=== PATIENT | female | born 1955 | race Two or more races ===

== ENCOUNTER 2017-06-26 11:46 | Inpatient (IN) | payer MEDICAID ==
[~2017-06-26] VITALS: Ht 154.9 cm; Wt 75.0 kg
[~2017-06-26 11:46] MED LIST: ATOR40TA71 PO; CLOP75TA33 PO; DIGO250T4 PO; FLUO20CA22 PO; GABA-532 PO; HYDR-3686 PO; PANT-47 PO; QUET-1 PO; WARF5TAB7 PO
[2017-06-26 12:42] LABS: BASOPHILS # (AUTO) 0.1 X10'3 (0-0.2); BASOPHILS % (AUTO) 0.6 % (0-1); EOSINOPHILS # (AUTO) 0.2 X10'3 (0-0.9); EOSINOPHILS % (AUTO) 2.3 % (0-6); HEMATOCRIT 39.5 % (35.0-45.0); HEMOGLOBIN 13.2 g/dl (12.0-16.0); LYMPHOCYTES # (AUTO) 1.8 X10'3 (1.1-4.8); LYMPHOCYTES % (AUTO) 18.6 % (21-51); MEAN CORPUSCULAR HEMOGLOBIN 31.5 PG (27.0-31.0); MEAN CORPUSCULAR HGB CONC 33.5 % (33.0-36.5); MEAN CORPUSCULAR VOLUME 93.9 FL (78-98); MEAN PLATELET VOLUME 8.3 FL (7.4-10.4); MONOCYTES # (AUTO) 0.5 X10'3 (0-0.9); MONOCYTES % (AUTO) 5.1 % (2-12); NEUTROPHILS % (AUTO) 73.4 % (42-75); PLATELET COUNT 175 X10'3 (140-440); RED BLOOD COUNT 4.21 X10'6 (4.20-5.60); RED CELL DISTRIBUTION WIDTH 14.7 % (11.5-14.5); WHITE BLOOD COUNT 9.5 X10'3 (4.5-11.0)
[2017-06-26 12:52] LABS: INR 1.8 INR; PARTIAL THROMBOPLASTIN TIME 35 SECONDS (22-32); PROTHROMBIN TIME 18.1 SECONDS (9.0-12.0)
[2017-06-26 13:02] LABS: ALANINE AMINOTRANSFERASE 34 U/L (12-78); ALBUMIN 3.7 G/DL (3.4-5.0); ALBUMIN/GLOBULIN RATIO 0.9 (1.1-1.5); ALKALINE PHOSPHATASE 132 IU/L (46-116); ANION GAP 9 (8-16); ASPARTATE AMINO TRANSFERASE 26 U/L (10-37); BILIRUBIN,TOTAL 0.3 MG/DL (0.1-1.0); BLOOD UREA NITROGEN 15 MG/DL (7-18); BUN/CREATININE RATIO 15.6 (6.6-38.0); CHLORIDE 107 MMOL/L (99-107); CREATININE 0.96 MG/DL (0.40-0.90); GLUCOSE 107 MG/DL (70-104); POTASSIUM 4.1 MMOL/L (3.5-5.1); SODIUM 140 MMOL/L (135-145); TOTAL CARBON DIOXIDE 24.1 MMOL/L (24-32); TOTAL PROTEIN 7.9 G/DL (6.4-8.2); eGFR 59 ML/MIN
[2017-06-26] MEDS ORDERED: clopidogrel 75mg tablet PO STA (14:05)
[2017-06-26] MEDS ORDERED: nitroGLYCERIN 0.4mg SUBLingual tab SL PRN ×2 (14:05→15:40)
[2017-06-26] MEDS: nitroGLYCERIN 0.4mg SUBLingual tab SL PRN ×2 (14:16→14:25)
[2017-06-26] MEDS ORDERED: LORazepam 2 mg/ml vial IV ONE (14:40)
[2017-06-26] MEDS ORDERED: acetaminophen 325mg tablet PO PRN ×2 (15:00)
[2017-06-26] MEDS ORDERED: magnesium hydroxide 30ml (MOM) UD suspension PO PRN (15:00)
[2017-06-26] MEDS ORDERED: mag hydrox/Alum hydrox/simeth 30ml oral suspension PO PRN (15:00)
[2017-06-26] MEDS ORDERED: bisacodyl 10mg suppository rectal RC PRN (15:00)
[2017-06-26] MEDS ORDERED: acetaminophen 650mg rectal suppository RC PRN (15:00)
[2017-06-26] MEDS ORDERED: HYDROcodone/acetaminophen 10/325mg tab PO PRN (15:00)
[2017-06-26] MEDS ORDERED: HYDROcodone/acetaminophen 5mg/325mg tablet PO PRN (15:00)
[2017-06-26] MEDS ORDERED: metoclopramide 5 mg/ml inj IV PRN (15:00)
[2017-06-26] MEDS ORDERED: diphenhydrAMINE 50 mg/ml inj IV PRN (15:00)
[2017-06-26] MEDS ORDERED: ondansetron/PF 4mg/2ml inj IV PRN (15:00)
[2017-06-26] MEDS ORDERED: HYDROmorphone 1 mg/ml syringe IV PRN ×2 (15:00)
[2017-06-26] MEDS ORDERED: diphenhydrAMINE 25mg capsule PO PRN (15:00)
[2017-06-26] MEDS: normal saline 1000ml 1,000 ML IV SCH (15:23)
[2017-06-26] MEDS ORDERED: metoprolol tartrate 1mg/ml inj IV PRN (15:40)
[2017-06-26] MEDS ORDERED: aminophylline 250mg/10ml inj. IV PRN (15:40)
[2017-06-26] MEDS ORDERED: regadenoson 0.4mg/5ml syringe IV PRN (15:40)
[2017-06-26 15:46] LABS: D-DIMER 0.55 MG/L FEU (0-0.50)
[2017-06-26] MEDS: hydrOXYzine 25 MG tablet PO SCH ×2 (15:54→23:59)
[2017-06-26 16:00] LABS: LIPASE 132 U/L (73-393); PHOSPHORUS 3.6 MG/DL (2.3-4.5)
[2017-06-26] MEDS: nicotine 21mg patch - 24 hr TD SCH (16:01)
[2017-06-26] MEDS: methylPREDNISolone sod succ 125mg/2ml vial IV SCH (20:29)
[2017-06-26] MEDS: quetiapine 100mg tablet PO SCH (20:30)
[2017-06-26] MEDS: gabapentin 300mg capsule PO SCH (20:30)
[2017-06-26] MEDS: FLUoxetine 20mg capsule PO SCH (20:30)
[2017-06-26] MEDS: docusate sod 100mg capsule PO SCH (20:30)
[2017-06-26 21:00] VITALS: BP 123/71
[2017-06-26] MEDS ORDERED: warfarin 5mg tablet PO SCH (21:00)
[2017-06-26] MEDS ORDERED: temazepam 15mg capsule PO PRN (21:00)
[2017-06-27] VITALS: BP 123/91
[2017-06-27] MEDS: normal saline 1000ml 1,000 ML IV SCH ×2 (01:20→11:22)
[2017-06-27 06:00] LABS: BASOPHILS % (AUTO) 0.3 % (0-1); EOSINOPHILS # (AUTO) 0.1 X10'3 (0-0.9); EOSINOPHILS % (AUTO) 0.9 % (0-6); HEMATOCRIT 41.4 % (35.0-45.0); HEMOGLOBIN 13.8 g/dl (12.0-16.0); LYMPHOCYTES # (AUTO) 1.1 X10'3 (1.1-4.8); LYMPHOCYTES % (AUTO) 12.4 % (21-51); MEAN CORPUSCULAR HEMOGLOBIN 31.4 PG (27.0-31.0); MEAN CORPUSCULAR HGB CONC 33.4 % (33.0-36.5); MEAN CORPUSCULAR VOLUME 94.1 FL (78-98); MEAN PLATELET VOLUME 8.4 FL (7.4-10.4); MONOCYTES % (AUTO) 0.5 % (2-12); NEUTROPHILS # (AUTO) 7.4 X10'3 (1.8-7.7); NEUTROPHILS % (AUTO) 85.9 % (42-75); PLATELET COUNT 170 X10'3 (140-440); RED CELL DISTRIBUTION WIDTH 14.3 % (11.5-14.5); WHITE BLOOD COUNT 8.6 X10'3 (4.5-11.0)
[2017-06-27 06:10] LABS: INR 1.8 INR; PROTHROMBIN TIME 18.7 SECONDS (9.0-12.0)
[2017-06-27 06:42] LABS: ALANINE AMINOTRANSFERASE 32 U/L (12-78); ALBUMIN 3.4 G/DL (3.4-5.0); ALBUMIN/GLOBULIN RATIO 0.8 (1.1-1.5); ALKALINE PHOSPHATASE 130 IU/L (46-116); ANION GAP 10 (8-16); ASPARTATE AMINO TRANSFERASE 21 U/L (10-37); BILIRUBIN,TOTAL 0.3 MG/DL (0.1-1.0); BLOOD UREA NITROGEN 16 MG/DL (7-18); BUN/CREATININE RATIO 16.2 (6.6-38.0); CALCIUM 8.3 MG/DL (8.5-10.1); CHLORIDE 107 MMOL/L (99-107); CHOL/HDL RATIO 4.9 (0.00-4.99); CHOLESTEROL 186 MG/DL (0-200); CREATININE 0.99 MG/DL (0.40-0.90); GLUCOSE 164 MG/DL (70-104); HDL CHOLESTEROL 38 MG/DL (35-60); LDL CHOLESTEROL 121 MG/DL (50-100); POTASSIUM 4.1 MMOL/L (3.5-5.1); SODIUM 140 MMOL/L (135-145); TOTAL CARBON DIOXIDE 23.2 MMOL/L (24-32); TOTAL PROTEIN 7.6 G/DL (6.4-8.2); TRIGLYCERIDES 113 MG/DL (20-135); eGFR 57 ML/MIN
[2017-06-27] MEDS ORDERED: clopidogrel 75mg tablet PO SCH (08:00)
[2017-06-27] MEDS ORDERED: pantoprazole 40mg Tablet.DR PO SCH (08:00)
[2017-06-27] MEDS ORDERED: digoxin 250mcg (0.25mg) tablet PO SCH (08:00)
[2017-06-27] MEDS ORDERED: azithromycin 250mg tablet PO SCH (08:00)
[2017-06-27] MEDS ORDERED: atorvastatin 20mg tablet PO SCH (08:00)
[2017-06-27 08:12] VITALS: BP 159/88
[2017-06-27] MEDS: hydrOXYzine 25 MG tablet PO SCH (08:44)
[2017-06-27] MEDS: gabapentin 300mg capsule PO SCH ×2 (08:44→12:50)
[2017-06-27] MEDS: docusate sod 100mg capsule PO SCH (08:44)
[2017-06-27] MEDS: quetiapine 100mg tablet PO SCH (08:44)
[2017-06-27] MEDS: FLUoxetine 20mg capsule PO SCH (08:44)
[2017-06-27] MEDS: nicotine 21mg patch - 24 hr TD SCH (08:45)
[2017-06-27] MEDS: methylPREDNISolone sod succ 125mg/2ml vial IV SCH (08:45)
[2017-06-27 11:39] VITALS: BP 133/68
[2017-06-27] MEDS ORDERED: NICO-687 TD (14:09)
[2017-06-27] MEDS ORDERED: NICO-630 TOP (14:09)
[2017-06-27] MEDS ORDERED: AZI25OT PO (14:09)
[2017-06-27] MEDS ORDERED: NICO-731 TD (14:09)
[2017-06-27] MEDS ORDERED: PRED20TA PO (14:15)
== END 2017-06-27 16:21 | disposition home or self-care (01) | DRG 140 ==
LOC: ER 11:46 → ED HOLD 15:00 → MED 3N 18:43
PROVIDERS: ADMIT Family Medicine; ATTEND Family Medicine
DX: J44.0 Chronic obstructive pulmonary disease with (acute) lower respiratory infection (principal); J18.9 Pneumonia, unspecified organism; I11.0 Hypertensive heart disease with heart failure; I24.9 Acute ischemic heart disease, unspecified; I50.20 Unspecified systolic (congestive) heart failure; I25.10 Atherosclerotic heart disease of native coronary artery without angina pectoris; J44.1 Chronic obstructive pulmonary disease with (acute) exacerbation; E11.9 Type 2 diabetes mellitus without complications; F32.9 Major depressive disorder, single episode, unspecified; F41.9 Anxiety disorder, unspecified; G89.29 Other chronic pain; M54.9 Dorsalgia, unspecified; E78.00 Pure hypercholesterolemia, unspecified; F17.200 Nicotine dependence, unspecified, uncomplicated; I25.2 Old myocardial infarction; Z79.899 Other long term (current) drug therapy; Z86.73 Personal history of transient ischemic attack (TIA), and cerebral infarction without residual deficits; Z90.710 Acquired absence of both cervix and uterus; Z95.0 Presence of cardiac pacemaker; Z88.6 Allergy status to analgesic agent; Z88.5 Allergy status to narcotic agent; Z88.2 Allergy status to sulfonamides; Z88.8 Allergy status to other drugs, medicaments and biological substances
CPT/HCPCS: 36415; 71045; 80053; 80061; 80162; 82948; 83036; 83690; 83735; 83880; 84100; 84443; 84484; 85025; 85379; 85610; 85730; 87070; 93005; 94760; 96374; 99285; J2060; J2930; J7030; Q0177

== ENCOUNTER 2022-01-07 10:41 | Day surgery (SDC) | payer MEDICAID ==
[~2022-01-07] VITALS: Ht 154.9 cm; Wt 57.6 kg
[~2022-01-07 10:41] MED LIST changes: +AZI25OT PO; +FLUO-213 PO; -FLUO20CA22 PO; +NICO-687 TD; +NICO-731 TD; +WARF-55 PO; -WARF5TAB7 PO
[2022-01-07 11:00] VITALS: BP 117/65
[2022-01-07] MEDS ORDERED: vancomycin/NS 1 GM ADD-VANTAGE 250 ML X 1 DOSE IV ONE (11:25)
[2022-01-07] MEDS ORDERED: cefazolin/dext.iso 2gm/100ml 100 ML IV ONE (11:25)
[2022-01-07 11:32] LABS: BASOPHILS # (AUTO) 0.1 X10'3 (0-0.2); BASOPHILS % (AUTO) 0.9 % (0-1); EOSINOPHILS # (AUTO) 0.1 X10'3 (0-0.9); EOSINOPHILS % (AUTO) 2.2 % (0-6); HEMATOCRIT 39.3 % (35.0-45.0); HEMOGLOBIN 13.2 g/dl (12.0-16.0); LYMPHOCYTES # (AUTO) 1.8 X10'3 (1.1-4.8); LYMPHOCYTES % (AUTO) 31.5 % (21-51); MEAN CORPUSCULAR HGB CONC 33.6 g/dL (33.0-36.5); MEAN CORPUSCULAR VOLUME 92.5 FL (78-98); MEAN PLATELET VOLUME 9.7 FL (7.4-10.4); MONOCYTES # (AUTO) 0.3 X10'3 (0-0.9); MONOCYTES % (AUTO) 6.2 % (2-12); NEUTROPHILS # (AUTO) 3.3 X10'3 (1.8-7.7); NEUTROPHILS % (AUTO) 59.2 % (42-75); PLATELET COUNT 138 X10'3 (140-440); RED BLOOD COUNT 4.25 X10'6 (4.20-5.60); RED CELL DISTRIBUTION WIDTH 14.1 % (11.5-14.5); WHITE BLOOD COUNT 5.6 X10'3 (4.5-11.0)
[2022-01-07] MEDS ORDERED: AMIO200T61 PO (11:44)
[2022-01-07] MEDS ORDERED: DESV50TA20 PO (11:44)
[2022-01-07] MEDS ORDERED: MELO-102 PO (11:44)
[2022-01-07] MEDS ORDERED: TIOT4MIS3 INH (11:44)
[2022-01-07] MEDS ORDERED: METH-798 PO (11:44)
[2022-01-07] MEDS ORDERED: NITR0.4T48 SL (11:44)
[2022-01-07] MEDS ORDERED: ARIP10TA57 PO (11:44)
[2022-01-07] MEDS ORDERED: DILT-103 PO (11:44)
[2022-01-07] MEDS ORDERED: DULO30CA52 PO (11:44)
[2022-01-07] MEDS ORDERED: PREG150C PO (11:44)
[2022-01-07] MEDS ORDERED: LEVE500T PO (11:44)
[2022-01-07] MEDS ORDERED: METO25TA6 PO (11:44)
[2022-01-07] MEDS ORDERED: PRAV80TA3 PO (11:44)
[2022-01-07] MEDS ORDERED: ALPR1TAB7 PO (11:44)
[2022-01-07] MEDS ORDERED: CLOP75TA34 PO (11:44)
[2022-01-07 11:51] LABS: ALBUMIN 3.7 G/DL (3.4-5.0); ANION GAP 9 (8-16); BLOOD UREA NITROGEN 15 MG/DL (7-18); BUN/CREATININE RATIO 15.8 (6.6-38.0); CALCIUM 9.1 MG/DL (8.5-10.1); CHLORIDE 111 MMOL/L (99-107); CREATININE 0.95 MG/DL (0.40-0.90); GLUCOSE 84 MG/DL (70-104); POTASSIUM 3.9 MMOL/L (3.5-5.1); SODIUM 145 MMOL/L (135-145); eGFR 59 ML/MIN
[2022-01-07] MEDS ORDERED: LIDOCAINE 2% w/EPI 1:100:000 30mL injection MDV**cath lab 1 only ONE (14:21)
[2022-01-07] MEDS ORDERED: midazolam 1 mg/ML 2ml injection ONE ×2 (14:21→14:57)
[2022-01-07] MEDS ORDERED: fentaNYL/PF 50MCG/1 ML 2ML syringe ONE (14:21)
[2022-01-07] MEDS ORDERED: vancomycin 1,000mg inj ONE (14:21)
[2022-01-07] MEDS ORDERED: gelatin sponge, absorbable (Gelfoam 12-7MM) sponge TP ONE (15:18)
[2022-01-07 15:54] VITALS: BP 144/74
[2022-01-07 16:09] VITALS: BP 138/64
[2022-01-07] MEDS ORDERED: HYDROcodone/acetaminophen 10/325mg tab PO PRN (16:10)
[2022-01-07] MEDS ORDERED: normal saline 1000ml 1,000 ML IV SCH (16:10)
[2022-01-07] MEDS ORDERED: HYDROcodone/acetaminophen 5mg/325mg tablet PO PRN (16:10)
[2022-01-07 16:24] VITALS: BP 119/57
[2022-01-07 16:38] VITALS: BP 122/59
[2022-01-07 16:54] VITALS: BP 125/62
== END 2022-01-07 17:25 | disposition home or self-care (01) ==
LOC: SSTAY O 10:41
PROVIDERS: ATTEND Internal Medicine Cardiovascular Disease
DX: Z45.010 Encounter for checking and testing of cardiac pacemaker pulse generator [battery] (principal); I44.1 Atrioventricular block, second degree; Z79.899 Other long term (current) drug therapy; Z79.01 Long term (current) use of anticoagulants; Z88.2 Allergy status to sulfonamides; Z88.6 Allergy status to analgesic agent
CPT/HCPCS: 33228; 36415; 80048; 83735; 85025; 85610; 93005; 99152; 99153; C1785; J2250; J3010; J3370; J3490; J7030; A4620; A6258; A6449; C1786